=== PATIENT | male | born 1995 | race African-American/Black ===

== ENCOUNTER → 2018-02-18 | Outpatient (CLI) | payer OTHER | END | disposition home or self-care (01) | LOC: CFH 06:51 | PROVIDERS: ATTEND Specialist | DX: S06.890A Other specified intracranial injury without loss of consciousness, initial encounter (principal); X58.XXXA Exposure to other specified factors, initial encounter; Y93.89 Activity, other specified; Y92.89 Other specified places as the place of occurrence of the external cause; Y99.8 Other external cause status | CPT/HCPCS: 70551 ==

== ENCOUNTER 2018-12-20 08:43 | Outpatient (CLI) | payer OTHER | END 2018-12-20 23:59 | disposition home or self-care (01) | LOC: CARD 08:43 | PROVIDERS: ATTEND Family Medicine | DX: S06.2X9D Diffuse traumatic brain injury with loss of consciousness of unspecified duration, subsequent encounter (principal); R94.01 Abnormal electroencephalogram [EEG]; X58.XXXD Exposure to other specified factors, subsequent encounter | CPT/HCPCS: 95819 ==